=== PATIENT | male | born 1985 | race Caucasian/White ===

== ENCOUNTER 2021-09-03 08:19 | Emergency (ER) | payer OTHER, SELFPAY ==
[2021-09-03 08:28] VITALS: BP 138/73; PULSE 71; RESP 16; TEMP 36.6; O2SAT 99
--- NOTE | 2021-09-03 08:51 | ED_ITS ---
HPI - URI/Sore Throat General Chief Complaint: Upper Respiratory Infection Stated Complaint: Sinus Source: patient and RN notes reviewed Limitations: no limitations History of Present Illness HPI Narrative: The unvaccinated patient, a non-smoker/nondrinker, presents with 3-4 week history of persistent nasal congestion, mild hoarseness, scanty productive cough and upper sinus headache. No fever measured, sore throat, earache, wheezing; no loss of taste/smell, CP, calf pain/edema, shortness of breath. No smokers but has pet cat triggers at home; symptoms were waxing and waning seem to improve mid month but then returned Related Data Allergies Allergy/AdvReac Type Severity Reaction Status Date / Time Sulfa (Sulfonamide Allergy Unknown Verified 09/03/21 08:45 Antibiotics) Review of Systems Review of Systems: General/Constitutional: No weight loss,fever Eyes: N0: Redness,discharge Ears/Nose/Throat: No: Epistaxis,ear discharge Respiratory: Denies: Hemoptysis Gastrointestinal: No Vomiting, Bleeding-rectal Skin: No Lumps, eruption Neurologic: No Focal Weakness,Sz Hematologic: Denies: Petechiae/Purpura Psychiatric: No: Suicida ideationl All Other Systems: Reviewed and Negative PMFSH Comments At time of signature, agree with nursing past medical, surgical, social and family history. There is no relevant family history pertinent to the presenting complaint Exam Narrative: General Appearance: Well appearing, Well nourished EYE: PERRLA, Conjunctiva clear Ears: Auditory canal normal, TM normal Nose: Rhinorrhea, Mucousal erythema Mouth/Throat: MM moist, Uvula midline, Pharyngeal erythema Neck: Supple, No adenopathy Respiratory: No respiratory distress, Breath sounds equal, Clear to auscultation Cardiovascular: RRR, No JVD Musculoskeletal: Non tender, Normal strength Skin: Warm, Dry Neurological: A&O x3, CN II-XII intact Psychiatric: Normal mood, Normal affect Course Vital Signs Vital signs: Vital Signs Temperature 97.8 F 09/03/21 08:28 Pulse Rate 71 09/03/21 08:28 Respiratory Rate 16 09/03/21 08:28 Blood Pressure 138/73 09/03/21 08:28 Pulse Oximetry 99 09/03/21 08:28 Temperature 97.8 F 09/03/21 08:28 Pulse Rate 71 09/03/21 08:28 Respiratory Rate 16 09/03/21 08:28 Blood Pressure 138/73 09/03/21 08:28 Pulse Oximetry 99 09/03/21 08:28 Discharge Plan Discharge Clinical Impression: Sinusitis Patient Disposition: Home, Self-Care Condition: Stable Instructions: Sinusitis (ED), Chronic Cough (ED) Additional Instructions: You may try OTC preparations like fever meds, Flonase, decongestants also Prescriptions: New benzonatate 100 mg capsule 100 mg PO TID PRN (Reason: cough) Qty: 20 RF: 2 codeine-guaifenesin 10-100 mg/5 mL liquid 7.5 ml PO Q6H PRN (Reason: cough) Qty: 118 RF: 0 azelastine 137 mcg (0.1 %) aerosol,spray 137 mcg NASAL Q12H Qty: 30 RF: 0 cefuroxime axetil 500 mg tablet 500 mg PO Q12H Qty: 14 RF: 0 Follow-up/Referrals: PHYSICIAN,FORENSIC ENGINEER [Primary Care Provider] -
[2021-09-04 20:04] LABS: SARS-CoV-2 RNA PCR Negative
== END 2021-09-03 09:05 | disposition home or self-care (01) ==
PROVIDERS: Emergency Provider Emergency Medicine
DX: J32.9 Chronic sinusitis, unspecified (principal); Z20.822 Contact with and (suspected) exposure to COVID-19
CPT/HCPCS: 99213; C9803; G0463; U0003; U0005

== ENCOUNTER 2025-06-29 12:01 | Emergency (ER) | payer BC, SELFPAY ==
[2025-06-29 12:08] VITALS: BP 122/83; PULSE 73; RESP 16; TEMP 36.7; O2SAT 97
--- NOTE | 2025-06-29 12:25 | ED.MALEGU ---
HPI - Male Genitourinary General Chief complaint: Urogenital-Male Stated complaint: testicle pain/back pain Time Seen by Provider: 06/29/25 12:15 Source: patient and RN notes reviewed Mode of arrival: ambulatory Limitations: no limitations History of Present Illness HPI Narrative: 40-year-old male presents Express Care complaining of left testicular pain started approximately 2 days ago. Patient said is intermittent. Patient reports he feels as if his left vas deferens is swollen and tender. Patient denies any pain to the testicle or any scrotal swelling for testicular swelling. Patient states also been dealing with left-sided low back pain for last 3 weeks said sometimes she is down to his left knee was unsure if this is related. Patient denies any dysuria, penile discharge, abdominal pain, nausea vomiting, diarrhea, painful erections, or any other symptoms. Patient denies any concerns for STIs. Related Data Home Medications ?Medication ?Instructions ?Recorded ?Confirmed ?Last Taken ?Type No Home Medications 06/29/25 06/29/25 Unknown History Allergies Allergy/AdvReac Type Severity Reaction Status Date / Time Sulfa (Sulfonamide Allergy Unknown Verified 06/29/25 12:18 Antibiotics) Review of Systems Review of Systems: CONSTITUTIONAL: Denies fever, chills, or sweats. EYES: Denies visual changes, redness, or discharge. ENT: Denies rhinorrhea, congestion, sore throat, or otalgia. CARDIOVASCULAR: Denies chest pain, palpitations, or edema. RESPIRATORY: Denies cough or dyspnea. GASTROINTESTINAL: Denies abdominal pain, nausea, vomiting, or diarrhea. GENITOURINARY: Denies dysuria, penile discharge, painful erection, scrotal swelling, scrotal pain, testicular swelling or hematuria. Positive for testicular pain. SKIN: Denies rash or itching. MUSCULOSKELETAL: Positive for back pain. Negative for joint pain, or myalgia. NEUROLOGIC: Denies headache, numbness, or weakness. PSYCHIATRIC: Denies anxiety or depression. All other systems reviewed are negative, except as documented in HPI. 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 There is no relevant family history pertinent to the patient complaint. Exam Narrative: GENERAL: This is a well-nourished, well-developed adult, in no apparent distress. They are non ill-appearing, nontoxic appearing. HEAD: normocephalic, atraumatic. EYES: Sclera clear/white. Conjunctiva normal. Vision is grossly intact. Extraocular movements intact EARS: External ears normal,Hearing grossly intact. NOSE: External nose normal THROAT: Mucous membranes moist, NECK: Neck supple, CARDIOVASCULAR: Regular rate and rhythm RESPIRATORY: Respiratory rate normal, respiratory effort nonlabored, no respiratory distress GENITOURINARY: External penis normal. No penile discharge. Scrotum normal. No scrotal swelling or erythema. Testicles are nontender without obvious swelling. Left epididymis edematous, non tender. Right epididymis normal. Cremasteric reflex intact bilaterally. SKIN: warm, Dry, intact with no suspicious lesions or rash, good texture and turgor. NEURO: awake, alert, and oriented to person, place and time. There were no obvious focal neurologic abnormalities. EXTREMITIES: No joint tenderness, effusion, or edema noted. Back: NONTENDER WITHOUT DEFORMITY. NO CVA TENDERNESS. Course Course Emergency Course: Portions of this record may have been created with voice recognition software Level of Care: Express Care Visit Vital Signs Vital signs: Vital Signs Temperature 98.1 F 06/29/25 12:08 Pulse Rate 73 06/29/25 12:08 Respiratory Rate 16 06/29/25 12:08 Blood Pressure 122/83 06/29/25 12:08 Pulse Oximetry 97 06/29/25 12:08 Oxygen Delivery Room Air 06/29/25 12:08 Temperature 98.1 F 06/29/25 12:08 Pulse Rate 73 06/29/25 12:08 Respiratory Rate 16 06/29/25 12:08 Blood Pressure 122/83 06/29/25 12:08 Pulse Oximetry 97 06/29/25 12:08 Oxygen Delivery Room Air 06/29/25 12:08 Reviewed Transfer Transfered to: [place] Transportation: Other (Private vehicle) Transfer rationale: Patient requires higher level care, rule out torsion, ultrasound imaging, further evaluation management Accepting physician: Haritha Sun NP MDM - Male Genitourinary MDM Narrative Medical decision making narrative: Patient's tested pain is intermittent in, nontender on exam, left epididymis feels edematous on exam. Cremasteric reflex intact bilaterally. Lives scrotal swelling or pain. External penis unremarkable. Denies any concerns of STIs. Patient would benefit from ultrasound imaging of his testicles. Does not appear to be acute testicular torsion however pain is intermittent. Given patient's symptoms, it is recommend the patient seek a higher level care and proceed immediately to the emergency department. Patient agreeable to go to [facility]. Called over to [facility] and spoke with Haritha Sun NP who is aware of this patient and accepted the patient for transfer. Patient advised to remain NPO proceed immediately to the emergency department. Patient will take himself via private vehicle. Patient is hemodynamically stable to drive himself to the hospital. Differential Diagnosis Differential diagnosis: Likely epididymitis and other (Testicular torsion, back pain, sciatica, hernia, STI) Critical Care Time Critical Care Time Critical Care Time: No Discharge Plan Discharge Clinical Impression: Pain in testicle Qualifiers: Laterality: left Qualified Code(s): N50.812 - Left testicular pain Patient Disposition: Acute Care Hospital Condition: Stable Patient Language: [place] Prescriptions: No Action No Home Medications Follow-up/Referrals: Jens Dunbar MD [Primary Care Provider, Family Practice] Time of Disposition: 12:25
== END 2025-06-29 12:29 | disposition short-term general hospital (02) ==
PROVIDERS: PCP Family Medicine Adolescent Medicine
DX: N50.812 Left testicular pain (principal); N02.B1 Recurrent and persistent immunoglobulin A nephropathy with glomerular lesion
CPT/HCPCS: 99212; G0463

== ENCOUNTER 2025-06-29 12:40 | Emergency (ER) | payer BC, SELFPAY ==
--- NOTE | ~2025-06-29 | US_ITS ---
US scrotum doppler INDICATION: Evaluate for torsion TECHNIQUE: Testicular sonogram utilizing grayscale and color Doppler FINDINGS: The testes are normal in size and appearance. No focal lesions are seen. The right testes measures 3.7 x 2.1 x 3.2 cm centimeters, and the left testis measures 3.8 x 2.6 x 3 cm. There is normal vascular flow to both testes. There are small bilateral epididymal cysts. Small bilateral hydroceles. There is a left varicocele. IMPRESSION: 1. Left varicocele. 2: No evidence for testicular torsion. Reviewed, dictated and finalized at location O.
[2025-06-29 12:43] VITALS: BP 165/98; PULSE 76; RESP 16; TEMP 36.2; O2SAT 100
--- OUTSIDE RECORDS SUMMARY | 2025-06-29 12:44 | XMS_ITS | Encounter Summary ---
Author Organization [facility] Address [address] [place] [address] Care Team Providers Care Biofuels Product Development Manager Name Role Phone Unavailable Primary Care Provider Unavailabl e Encounter Details Date Type Department Care Team (Late st Contact Info) Description 11/10/2020 Lab Requisition [facility] MICROBIOLOGY [address] [place] [address] Social History Tobacco Use Types Packs/Day Years Used Date Smoking Tobacco: Never Assessed Sex and Gender Information Value Date Recorded Sex Assigned at Not on file Legal Sex Male 2:30 PM CDT Gender Identity Not on file Sexual Orientation Not on file documented as of this encounter Plan of Treatment Not on file documented as of this encounter Procedures Procedure Name Priority Date/Time Associated Diagnosis Comments SARS-COV-2 (COVID-19) IN HOUSE Routine 11/09/2020 11:00 AM DATA KEYER documented in this encounter Results * SARS-COV-2 (COVID-19) IN HOUSE (11/09/2020 11:00 AM DATA KEYER) COVID-19 PCR Not detected Not detected 11/10/2020 11:08 AM DATA KEYER [facility]CROBIOLOGY Microbiology SPECIMEN FROM NASOPHARYNGEAL STRUCTURE / Unknown Collection / Unknown 11/09/2020 11:00 AM DATA KEYER 11/10/2020 8:10 AM DATA KEYER Narrative [facility] - 11/10/2020 11:08 AM DATA KEYER This nucleic acid amplification assay performance was validated by [facility]. This test has been authorized by the Food and Drug administration (FDA)under an Emergency Use Authorization (EUA). This test has been validated in accordance with the FDA's guidance document Policy for Diagnostic Testing in Laboratories Certified to perform High Complexity Testing under CLIA prior to Emergency Use Authorization for Coronavirus Disease-2019 during the Public Health Emergency issued on December 04, 2019. FDA independent review of this validation is pending. This test is only authorized for the duration of time the declaration that circumstances exist justifying the authorization of emergency use of in vitro diagnostic tests for detection of SARS-CoV-2 virus and/or diagnosis of COVID-19 infection under section 564(b)(1) of the Act, 21 U.S.C 360bbb-3 (b)(1), unless the authorization is terminated or revoked sooner. Fact Sheets for this EUA assay are available upon request. us LAB - MICROBIOLOGY ORDERABLES Fi nal Result [facility] [address] [place] [address], [facility] [phone] documented in this encounter Visit Diagnoses Not on filedocumented in this encounter Additional Health Concerns Infection Onset Date Last Indicated Resolved Time COVID-19 Under Investigation 11/09/2020 11/09/2020 11/10/2020 11:08 AM DATA KEYER documented as of this encounter
--- OUTSIDE RECORDS SUMMARY | 2025-06-29 12:44 | XMS_ITS | Clinical Summary ---
Author Organization [facility] Address [address] [place] [address] Care Team Providers Care Golf Ball Marker Name Role Phone Unavailable Primary Care Provider Unavailabl e Source Comments [facility],non-owned Affiliates and Associated Physician Practices is amultiple site organization consisting of ambulatory clinics and hospital sitesin [place], [place], [place] and [place]. This disclosure is being madepursuant to the Care Everywhere program and may not contain all information available regarding this patient. Last updated 18.[facility] Allergies No known active allergies Immunizations Immunization Administration Dates Next Due TDAP (7yrs+) 05/14/2020 Social History Tobacco Use Types Packs/Day Years Used Date Smoking Tobacco: Never Assessed Sex and Gender Information Value Date Recorded Sex Assigned at Not on file Legal Sex Male 2:30 PM CDT Gender Identity Not on file Sexual Orientation Not on file Plan of Treatment Health Maintenance Due Date Last Done Comments HIV SCREENING 2001 HEPATITIS C SCREENING 02/04/2004 HEPATITIS B VACCINE (1 of 3 - 19+ 3-dose series) 2005 HPV VACCINE (1 - 3-dose SCDM series) 2013 DEPRESSION SCREENING 10/06/2024 COVID-19 VACCINE (2023-2 5 season) 2025 INFLUENZA VACCINE (#1) 2025 08/14/2011 DTAP/TDAP/TD VACCINES (2 - T d or Tdap) 05/14/2030 05/14/2020 ZOSTER VACCINE (1 of 2) 02/09/2036 HIB VACCINE Aged Out No longer eligi ble based on patient's age to complete this topic MENINGOCOCCAL (Group B) VACC INE SHARED DECISION-MAKING Aged Out No longer eligibl e based on patient's age to complete this topic MENINGOCOCCAL GROUPS A/C/Y/W VACCINE Aged Out No longer eligible b ased on patient's age to complete this topic PNEUMOCOCCAL VACCINE Aged Out No long er eligible based on patient's age to complete [place] [address] [facility]
--- OUTSIDE RECORDS SUMMARY | 2025-06-29 13:19 | XMS_ITS | Encounter Summary ---
Author Organization [facility] Address [address] [place] [address] Care Team Providers Care Document Design Specialist Name Role Phone Unavailable Primary Care Provider Unavailabl e Encounter Details Date Type Department Care Team (Late st Contact Info) Description 11/10/2020 Lab Requisition [facility]BIOLOGY [address] [place] [address] Social History Tobacco Use Types Packs/Day Years [...] (COVID-19) IN HOUSE Routine 11/09/2020 11:00 AM SPEECH PATHOLOGY SUPERVISOR documented in this encounter Results * SARS-COV-2 (COVID-19) IN HOUSE (11/09/2020 11:00 AM SPEECH PATHOLOGY SUPERVISOR) COVID-19 PCR Not detected Not detected 11/10/2020 11:08 AM SPEECH PATHOLOGY SUPERVISOR [facility]CROBIOLOGY Microbiology SPECIMEN FROM NASOPHARYNGEAL STRUCTURE / Unknown Collection / Unknown 11/09/2020 11:00 AM SPEECH PATHOLOGY SUPERVISOR 11/10/2020 8:10 AM SPEECH PATHOLOGY SUPERVISOR Narrative [facility] - 11/10/2020 11:08 AM SPEECH PATHOLOGY SUPERVISOR This nucleic acid amplification assay performance was validated by [facility]. This test has been [...] LAB - MICROBIOLOGY ORDERABLES Fi nal Result [facility] [address] [place] [address], [facility] [phone] documented in this encounter Visit Diagnoses Not on filedocumented in this encounter Additional Health Concerns Infection Onset Date Last Indicated Resolved Time COVID-19 Under Investigation 11/09/2020 11/09/2020 11/10/2020 11:08 AM SPEECH PATHOLOGY SUPERVISOR documented as of this encounter
--- OUTSIDE RECORDS SUMMARY | 2025-06-29 13:19 | XMS_ITS | Clinical Summary ---
Author Organization [facility] Address [address] [place] [address] Care Team Providers Care Nip Wrapper Name Role Phone Unavailable Primary Care Provider Unavailabl e Source Comments [facility],non-owned Affiliates and Associated Physician Practices is amultiple site organization consisting of ambulatory clinics and hospital sitesin [place], [place], [place] and [place]. This disclosure is being madepursuant to the Care Everywhere program and may not contain all information available regarding this patient. Last updated 18.[facility] Allergies No known active allergies Immunizations Immunization [...] patient's age to complete [place] [address] [facility] Address: [facility] [address] [place] [address]
--- NOTE | 2025-06-29 13:22 | PC.NURSE ---
ultrasound at bedside.
--- NOTE | 2025-06-29 13:45 | PC.NURSE ---
Pt. educated that provider ordered a urine sample. Pt. to bathroom to attempt to provide sample.
[2025-06-29 14:15] LABS: Add Urine Microscopic? NO; Appearance Urine Clear (Clear); Glucose Urine UA Negative (Negative); Leukocyte Esterase Ur Negative LEU/UL (Negative); Nitrate Urine Negative (Negative); Specific Grav Ur 1.016 (1.001-1.035)
--- NOTE | 2025-06-29 14:34 | ED.GENADULT ---
HPI - General Adult General Chief complaint: Urogenital-Male Stated complaint: r/o torsion Time Seen by Provider: 06/29/25 13:06 History of Present Illness HPI narrative: Marco Adams is a 40 y/o male who presents with complaints of having intermittent left testicular pain for 1-2 days, now a little more constant since he had the ultrasound done. no concern for STI/ no dysuria/ no abdominal pain/ no penile discharge Related Data Home Medications ?Medication ?Instructions ?Recorded ?Confirmed ?Last Taken ?Type No Home Medications 06/29/25 06/29/25 Unknown History Allergies Allergy/AdvReac Type Severity Reaction Status Date / Time Sulfa (Sulfonamide Allergy Unknown Verified 06/29/25 12:50 Antibiotics) Review of Systems Review of Systems: All systems reviewed & are unremarkable except as noted in HPI and below PMFSH Past Medical History Medical History Hx of bleeding following renal biopsy IgA nephropathy Surgical History Surgical History History of adenoidectomy Family History Family History Grandparent Heart disease Social History Social History Smoking status: Never smoker Second hand tobacco smoke exposure: No Alcohol intake: current Alcohol use details: socially Substance use: never Substance use type: does not use Living arrangements: with family Occupation/Education: occupation 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 HEAD: Normocephalic, atraumatic. EYES: PERRLA and EOMI. ENT: Nares clear, no rhinorrhea or epistaxis. Mucous membranes moist. Oropharynx without tonsillar hypertrophy exudate or other lesions. NECK: Supple. No adenopathy or masses. No carotid bruits or JVD CHEST: Clear to auscultation. No respiratory distress. No wheezes rales or rhonchi HEART: Regular rate and rhythm. No murmur heard. Normal peripheral pulses. ABDOMEN: Soft, nontender, nondistended, normal active bowel sounds. EXTREMITIES: Normal range of motion. No edema. SKIN: Warm, dry, no rash. NEURO: No focal deficits. Alert and oriented x3. PSYCH: Normal mood and affect. Course Vital Signs Vital signs: Vital Signs Temperature 36.2 C L 06/29/25 12:43 Pulse Rate 76 06/29/25 12:43 Respiratory Rate 16 06/29/25 12:43 Blood Pressure 165/98 H 06/29/25 12:43 Pulse Oximetry 100 06/29/25 12:43 Oxygen Delivery Room Air 06/29/25 12:43 Temperature 36.4 C 06/29/25 15:00 Pulse Rate 86 06/29/25 15:00 Respiratory Rate 16 06/29/25 15:00 Blood Pressure 129/96 H 06/29/25 15:00 Pulse Oximetry 98 06/29/25 15:00 Oxygen Delivery Room Air 06/29/25 12:43 Medical Decision Making [facility] Narrative Medical decision making narrative: 40 y/o sent from [facility] for scrotal us r/o torsion Denies any other symptoms/ no abdominal pain/ no flank pain / no dysuria/ no penile discharge UA: unremarkable US: 1. Left varicocele. 2: No evidence for testicular torsion. GC/Chlam- Negative with these results pt will be d/c home scrotal support recommended with urology referral. Return precautions provided Medical Records Medical records reviewed: Yes I reviewed the external patient's medical records. Vital Signs Vital Signs: Vital Signs Temperature 36.2 C L 06/29/25 12:43 Pulse Rate 76 06/29/25 12:43 Respiratory Rate 16 06/29/25 12:43 Blood Pressure 165/98 H 06/29/25 12:43 Pulse Oximetry 100 06/29/25 12:43 Oxygen Delivery Room Air 06/29/25 12:43 Temperature 36.4 C 06/29/25 15:00 Pulse Rate 86 06/29/25 15:00 Respiratory Rate 16 06/29/25 15:00 Blood Pressure 129/96 H 06/29/25 15:00 Pulse Oximetry 98 06/29/25 15:00 Oxygen Delivery Room Air 06/29/25 12:43 Vitals reviewed by me Lab Data Lab results reviewed: Yes I reviewed the patient's lab results. Labs: Lab Results 06/29/25 Range/Units 14:03 Urine Color Yellow (Yellow) Urine Appearance Clear (Clear) Urine pH 6.0 (5.0-9.0) Ur Specific Kidder 1.016 (1.001-1.035) Urine Protein Negative (Negative) mg/dL Urine Glucose (UA) Negative (Negative) mg/dL Urine Ketones Negative (Negative) mg/dL Ur Blood (Man) Negative (Negative) Urine Nitrate Negative (Negative) Urine Bilirubin Negative (Negative) Urine Urobilinogen 0.2 (<2.0) mg/dL Leukocyte Esterase Rfl Negative (Negative) BENJAMIN/UL C. trachomatis (PCR) Not detected (NOT DETECTE) N. gonorrhoeae (PCR) Not detected (NOT DETECTE) Imaging Data Radiologist's impression: Impressions Scrotum Ultrasound 06/29/25 13:42 IMPRESSION: 1. Left varicocele. 2: No evidence for testicular torsion. Discharge Plan Discharge Clinical Impression: Varicocele Patient Disposition: Home Condition: Stable Instructions: Antibiotic Form, Varicocele (ED) Additional Instructions: continue to wear the scrotal support Please call to follow up with urology as we discussed If you should develop any new or worsening symptoms return to the ER> Patient Language: Kyrgyz Prescriptions: No Action No Home Medications Follow-up/Referrals: Claudy Lundberg MD [Physician, Urology] - 1 Week Jens Dunbar MD [Primary Care Provider, Family Practice] Time of Disposition: 14:49
--- NOTE | 2025-06-29 14:59 | PC.NURSE ---
Pt. states he will buy his own scrotal support and does not need the scrotal support from Sean. Provider May okay with this plan.
[2025-06-29 15:00] VITALS: BP 129/96; PULSE 86; RESP 16; TEMP 36.4; O2SAT 98
== END 2025-06-29 15:05 | disposition home or self-care (01) ==
PROVIDERS: Emergency Provider Nurse Practitioner Family; PCP Family Medicine Adolescent Medicine
DX: I86.1 Scrotal varices (principal)
CPT/HCPCS: 76870; 81003; 87491; 87591; 93976; 99284

== ENCOUNTER 2025-07-28 11:11 | Outpatient (CLI) | payer BC, SELFPAY ==
--- NOTE | ~2025-07-28 | CT_ITS ---
EXAMINATION: CT abdomen pelvis wo con, 07/28/2025 11:14 CDT HISTORY: L flank pain COMPARISON: No comparisons available. TECHNIQUE: CT scan of the abdomen and pelvis was performed without IV contrast. One or more of the following dose reduction techniques were used: automated exposure control, adjustment of the mA and/or kV according to patient size, use of iterative reconstruction technique. Unless otherwise stated, incidental findings do not require dedicated follow up imaging FINDINGS: CT abdomen: LUNG BASES: The lung bases are clear. The visualized portions of the heart and pericardium are unremarkable. LIVER: Unremarkable, liver contours intact, no lesions. SPLEEN: Unremarkable, no splenomegaly. KIDNEYS: Right Kidney: Arising from the right kidney superior pole there is a simple appearing renal cyst 1.6 x 1.7 cm. Left Kidney: Unremarkable. No calculi. No hydronephrosis ADRENAL GLANDS: Unremarkable. PANCREAS: Unremarkable. GALLBLADDER/BILIARY: Unremarkable. No biliary dilatation. STOMACH AND ESOPHAGUS: Visualized stomach and esophagus within normal limits. BOWEL/MESENTERY: Moderate fecal content. No colitis or diverticulitis. Appendix normal. Mesentery normal. Small bowel normal. ADENOPATHY/RETROPERITONEUM: No lymphadenopathy. AORTA/VASCULATURE: Normal caliber aorta. FREE FLUID OR FREE AIR: None. CT pelvis: SOLID ORGANS/REPRODUCTIVE: Unremarkable. BLADDER: Within normal limits. OSSEOUS STRUCTURES: No acute osseous abnormality.No suspicious lesions. OVERLYING SOFT TISSUES: Unremarkable. IMPRESSION: 1. No etiology identified to explain the patient's symptoms. Follow-up suggested if symptoms persist. Reviewed, dictated and finalized at location P. IMPRESSION: 1. No etiology identified to explain the patient's symptoms. Follow-up suggeste d if symptoms persist.
== END 2025-07-28 11:12 | disposition home or self-care (01) ==
LOC: MICIMG 11:12
PROVIDERS: PCP Nurse Practitioner Family; Visit Provider Nurse Practitioner Family
DX: R10.A2 Flank pain, left side (principal)
CPT/HCPCS: 74176

== ENCOUNTER → 2025-08-31 09:40 | Outpatient (CLI) | payer BC, SELFPAY ==
--- NOTE | ~2025-08-31 | XR_ITS ---
XR lumbar spine min 4V Indication: M54.9 - Dorsalgia LT side LBP off/on months, no injury Comparison: None Findings: The vertebral heights are intact. No fracture or subluxation. Minimal loss of disc at L5-S1. Soft tissues unremarkable Impression: No acute abnormality. Reviewed, dictated and finalized at location P. [employer] Impression: No acute abnormality.
== END ==
LOC: EXPCRAD 09:41
PROVIDERS: PCP Family Medicine; Visit Provider Family Medicine
DX: M54.9 Dorsalgia, unspecified (principal)
CPT/HCPCS: 72110